=== PATIENT | male | born 1940 | race Caucasian/White ===

== ENCOUNTER → 2024-09-24 14:37 | Outpatient (REF) | payer OTHER, SELFPAY | LOC: RAD 14:37 | PROVIDERS: ATTENDING PHYSICIAN Internal Medicine | DX: R05.3 Chronic cough (principal) | CPT/HCPCS: 71046 ==

== ENCOUNTER 2025-02-18 10:21 | Emergency (ER) | payer OTHER, SELFPAY ==
[2025-02-18 10:24] VITALS: BP 174/82
--- NOTE | 2025-02-18 12:33 | ED.GENMED ---
History of Present Illness
General
Chief Complaint: Musculo-Skeletal Complaint
Source: patient
Time Seen by Provider: 02/18/25 11:53
History of Present Illness
History of Present Illness:
85-year-old male with past medical history of previous prostate cancer, [id number] diabetes, anemia status post multiple procedures done on his lower back presenting to the ER with exacerbation of what he believes is sacroiliac
inflammation. Patient states last night started with some mild discomfort and then around 9 PM went to go sit on his couch which is when the more intense pain started. He states that the pain is directly in the areas where he previously needed a
steroid injection, went to urgent care thinking they might be able to help him with this but was directed to the ER for further evaluation. He did call Dr. Parrish's office but had not yet received a return call. He notes movement makes the pain
worse but when he does find a comfortable position when laying reclined he notes minimal to no pain. Patient did not take anything for symptoms today but did take Tylenol last night prior to going to bed. He denies any fevers, new traumatic
injuries, focal weakness or numbness, saddle anesthesias, bowel or urinary incontinence.
Past History
Past History
ED Past Medical History: Cancer (Prostate), NIDDM and Other (Kidney stones)
ED Past Surgical History: Orthopedic and Urological
Social History
Tobacco: Non-smoker
Alcohol: None
Drug: None
Personal:
Living: with family
Review of Systems
Review of Systems
All Other Systems: ROS reviewed and negative except as documented in HPI and ROS
Phy Exam
Physical Exam
Physical Exam:
GENERAL: Alert , in no apparent distress
EYE: clear conjunctiva b/l
NECK: Supple
ENT: o/p clr, mmm.
BACK: Normal range of motion, focal and pinpoint tenderness over the left sacroiliac joint, no midline bony tenderness, no rashes
NEUROLOGICAL: Alert and oriented, no focal neuro deficits. Patellar deep tendon reflexes intact and equal bilaterally, sensation grossly intact and equal to light touch bilateral lower extremities
SKIN: Warm and dry, skin intact.
MUSCULOSKELETAL: No edema, well perfused. EHL intact bilaterally
PSYCH: Normal and appropriate interaction.
Scores
Heart Failure Risk
Heart Failure Risk Score: Not Applicable
Heart Score for Chest Pain Patients
STEMI patient?: Not applicable
Withdrawal Assessment of Alcohol
Withdrawal Assessment Completed?: Not applicable
Course
Vital Signs
Initial and Last Documented VS:
Initial Vital Signs
Temp Pulse Resp BP Pulse Ox
97.3 F 70 16 174/82 97
02/18/25 10:24 02/18/25 10:24 02/18/25 10:24 02/18/25 10:24 02/18/25 10:24
Last Documented Vital Signs
Temp Pulse Resp BP Pulse Ox
97.3 F 70 16 174/82 97
02/18/25 10:24 02/18/25 10:24 02/18/25 10:24 02/18/25 10:24 02/18/25 12:34
MDM/Problems Addressed
Differential Diagnosis Includes:
Sacroiliitis
Spinal stenosis
Compression fracture
Nerve impingement
Disc herniation
No symptoms to suggest infectious etiology
No symptoms to suggest neurogenic claudication
MDM/Problems Addressed:
85-year-old male presenting to the ER in hopes of obtaining a steroid injection for what he believes to be exacerbation of inflammatory changes within his sacroiliac joint. Patient does have point tenderness right over the left sacroiliac joint. I
explained to him that we do not do steroid injections within the ER and that this would need to be done at Dr. Parrish's office. I did offer a localized trigger point injection which patient was agreeable to. I instilled 5 mL of 1% bupivacaine
directly overlying the SI joint with patient noting some relief of his pain. Patient was also requesting a steroid taper. Given his history of diabetes I did note to the patient that his blood sugars may be temporarily elevated due to the Medrol
Dosepak, patient expressed understanding. I also contacted Dr. Parrish's office to let them know that the patient was in the ER and they will contact the patient to make an appointment time for him to come be seen.
*Pulse Oximetry
SaO2: 97
Oxygen Mode of Delivery: Room air
Patient hypoxic: no
*Critical Care Note
Total Time (30-74mins, 75-104mins- exclusive of procedures): Not Applicable
ED Attending Note
-
Portions of this chart may have been created with voice recognition software.� Occasional wrong word or��sound alike� substitutions may have occurred due to the inherent limitations of voice recognition software.
Discharge Plan
Departure
Patient Disposition: Home (Routine Discharge)
Date of Disposition: 02/18/25
Time of Disposition: 12:34
Patient with high blood pressure during this ER visit?: Yes
Discharge Problem:
Dorsalgia of lumbosacral region
Instructions: Low back pain - ED (DC)
Prescriptions:
New
methylprednisolone [Medrol (Toni)] 4 mg tablets,dose pack
4 mg PO DIRECTED Qty: 21 0RF
No Action
metformin 500 MG tablet extended release 24 hr
500 mg PO BID
levothyroxine 25 MCG tablet
25 mcg PO DAILY
temazepam 15 MG capsule
15 mg PO HSPRN PRN (Reason: insomnia)
tamsulosin 0.4 MG capsule
0.4 mg PO QPM
Patient Comments:
at dinner time
azelastine 1 SPRAY aerosol,spray
1 spray intranasal DAILY
potassium citrate 15 MEQ tablet extended release
15 meq PO BID Qty: 180 0RF
tramadol [Ultram] 50 MG tablet
50 mg PO Q8 PRN (Reason: pain) Qty: 20 0RF
phenazopyridine 100 MG tablet
100 mg PO BID Qty: 20 0RF
cephalexin 500 MG capsule
500 mg PO BID Qty: 10 0RF
Referrals:
Edward Calloway MD [Family Provider, Internal Medicine]
Interventions
Interventions:
*Nursing Disposition Last Done: 02/18/25 12:38
ED-Musculoskeletal Assessment Last Done: 02/18/25 12:36
Discharge Date and Time
Discharge Date/Time: 02/18/25 12:39
Print Language: ESTONIAN
== END 2025-02-18 12:39 | disposition home or self-care (01) ==
LOC: EMR 10:21
PROVIDERS: EMERGENCY PHYSICIAN Emergency Medicine; FAMILY PHYSICIAN Internal Medicine
DX: M54.50 Low back pain, unspecified (principal); M53.3 Sacrococcygeal disorders, not elsewhere classified; E11.9 Type 2 diabetes mellitus without complications; Z85.46 Personal history of malignant neoplasm of prostate; Z87.442 Personal history of urinary calculi
CPT/HCPCS: 99283